=== PATIENT | male | born 1960 | race Caucasian/White ===

== ENCOUNTER → 2023-11-18 16:42 | Outpatient (REF) | payer BC, SELFPAY | LOC: PAVMRI 16:42 | PROVIDERS: ATTENDING PHYSICIAN Physical Medicine & Rehabilitation Pain Medicine; FAMILY PHYSICIAN Internal Medicine | DX: T14.8XXA Other injury of unspecified body region, initial encounter (principal) | CPT/HCPCS: 72148 ==